=== PATIENT | female | born 1995 | race Caucasian/White ===

== ENCOUNTER → 2018-03-15 | Outpatient (CLI) | payer OTHER ==
[2018-03-15 19:12] LABS: FREE THYROXINE INDEX 4.1 % (1.3-4.8); T UPTAKE 27 % (30-39); THYROXINE (T4) 15.3 UG/DL (4.5-12.0)
[2018-03-15 19:21] LABS: BASO % 0.4 % (0.0-1.0); EOS # 0.1 10^3/uL (0.0-0.50); EOS % 0.7 % (0.0-3.0); HEMATOCRIT 39.2 % (36.0-47.0); HEMOGLOBIN 13.5 g/dl (12.0-15.5); IMMATURE GRANULOCYTE % 0.4 % (0-3.0); LYMPH # 2.3 10^3/uL (1.5-6.5); LYMPH % 22.8 % (24.0-44.0); MEAN CORPUSCULAR HEMOGLOBIN 31.8 pg (27.0-33.0); MEAN CORPUSCULAR HGB CONC 34.4 g/dl (32.0-36.5); MEAN CORPUSCULAR VOLUME 92.5 fl (80.0-96.0); MONO # 0.6 10^3/uL (0.0-0.8); MONO % 6.1 % (0.0-5.0); NEUTROPHILS # 7.1 10^3/uL (1.8-7.7); NEUTROPHILS % 69.6 % (36.0-66.0); PLATELET COUNT, AUTOMATED 257 10^3/uL (150-450); RED BLOOD COUNT 4.24 10^6/uL (4.00-5.40); RED CELL DISTRIBUTION WIDTH 11.9 % (11.5-14.5); WHITE BLOOD COUNT 10.2 10^3/uL (4.0-10.0)
[2018-03-15 22:01] LABS: CHLAMYDIA DNA AMPLIFICATION NEGATIVE (NEGATIVE); GC DNA AMPLIFICATION NEGATIVE (NEGATIVE)
[2018-03-18 10:44] LABS: RUBELLA IgG QUALITATIVE IMMUNE (IMMUNE)
[2018-03-18 10:48] LABS: HBsAg Prenatal NEGATIVE (NEGATIVE)
[2018-03-18 11:13] LABS: HEPATITIS C VIRUS ABY INDEX 0.1 INDEX (<0.8)
[2018-03-18 11:13] LABS: HIV 1&2 SCREEN CENTAUR NEGATIVE (NEGATIVE)
== END ==
LOC: M SMT 15:45
DX: Z36.89 Encounter for other specified antenatal screening (principal); Z3A.08 8 weeks gestation of pregnancy
CPT/HCPCS: 84443

== ENCOUNTER 2018-04-25 10:43 | Emergency (ER) | payer OTHER ==
[2018-04-25 12:26] LABS: BASO % 0.2 % (0.0-1.0); EOS # 0.1 10^3/uL (0.0-0.50); EOS % 0.9 % (0.0-3.0); HEMATOCRIT 40.4 % (36.0-47.0); HEMOGLOBIN 14.1 g/dl (12.0-15.5); IMMATURE GRANULOCYTE % 0.4 % (0-3.0); LYMPH # 1.8 10^3/uL (1.5-6.5); LYMPH % 20.3 % (24.0-44.0); MEAN CORPUSCULAR HEMOGLOBIN 32.2 pg (27.0-33.0); MEAN CORPUSCULAR HGB CONC 34.9 g/dl (32.0-36.5); MEAN CORPUSCULAR VOLUME 92.2 fl (80.0-96.0); MONO # 0.5 10^3/uL (0.0-0.8); MONO % 5.1 % (0.0-5.0); NEUTROPHILS # 6.6 10^3/uL (1.8-7.7); NEUTROPHILS % 73.1 % (36.0-66.0); PLATELET COUNT, AUTOMATED 221 10^3/uL (150-450); RED BLOOD COUNT 4.38 10^6/uL (4.00-5.40); RED CELL DISTRIBUTION WIDTH 12.2 % (11.5-14.5)
[2018-04-25 12:40] LABS: APPEARANCE, URINE HAZY (CLEAR); BACTERIA, URINE AUTO NEGATIVE (NEGATIVE); BILIRUBIN, URINE AUTO NEGATIVE (NEGATIVE); BLOOD, URINE BLOOD NEGATIVE (NEGATIVE); COLOR, URINE YELLOW (YELLOW); GLUCOSE, URINE (UA) AUTO NEGATIVE (NEGATIVE); KETONE, URINE AUTO NEGATIVE (NEGATIVE); LEUKOCYTE ESTERASE, URINE AUTO NEGATIVE (NEGATIVE); MUCUS, URINE SMALL (NEGATIVE); NITRITE, URINE AUTO NEGATIVE (NEGATIVE); PROTEIN, URINE AUTO NEGATIVE (NEGATIVE); RBC, URINE AUTO 0 /HPF (0-3); SPECIFIC GRAVITY URINE AUTO 1.023 (1.002-1.035); SQUAMOUS EPITHELIAL CELL UR AU 4 /HPF (0-6); UROBILINOGEN, URINE AUTO 0.2 mg/dL (0.0-2.0); WBC, URINE AUTO 1 /HPF (0-3)
[2018-04-25 12:43] LABS: ALBUMIN 3.8 GM/DL (3.2-5.2); ALKALINE PHOSPHATASE 59 U/L (45-117); ALT/SGPT 15 U/L (12-78); ANION GAP 9 MEQ/L (8-16); AST/SGOT 12 U/L (7-37); BILIRUBIN,TOTAL 0.4 MG/DL (0.2-1.0); BLOOD UREA NITROGEN 6 MG/DL (7-18); CALCIUM LEVEL 9.1 MG/DL (8.5-10.1); CARBON DIOXIDE LEVEL 22 MEQ/L (21-32); CHLORIDE LEVEL 107 MEQ/L (98-107); CREATININE FOR GFR 0.54 MG/DL (0.55-1.30); GLOMERULAR FILTRATION RATE > 60.0 (>60); GLUCOSE, FASTING 79 MG/DL (70-100); POTASSIUM SERUM 4.1 MEQ/L (3.5-5.1); SODIUM LEVEL 138 MEQ/L (136-145)
== END 2018-04-25 13:25 | disposition home or self-care (01) ==
LOC: M ED 10:43
DX: O99.89 Other specified diseases and conditions complicating pregnancy, childbirth and the puerperium (principal); N83.11 Corpus luteum cyst of right ovary; Z3A.15 15 weeks gestation of pregnancy
CPT/HCPCS: 76811

== ENCOUNTER → 2018-05-15 | Outpatient (CLI) | payer OTHER ==
[2018-05-15 14:45] LABS: FREE T4 0.93 NG/DL (0.76-1.46)
== END ==
LOC: M SMT 10:46
DX: Z34.82 Encounter for supervision of other normal pregnancy, second trimester (principal); Z36.89 Encounter for other specified antenatal screening
CPT/HCPCS: 84443

== ENCOUNTER → 2018-05-24 | Outpatient (CLI) | payer OTHER | LOC: M RAD 17:28 | DX: Z36.89 Encounter for other specified antenatal screening (principal); Z3A.19 19 weeks gestation of pregnancy | CPT/HCPCS: 76816 ==

== ENCOUNTER → 2018-06-19 | Outpatient (CLI) | payer OTHER | LOC: M RAD 16:36 | DX: O44.42 Low lying placenta NOS or without hemorrhage, second trimester (principal); Z36.89 Encounter for other specified antenatal screening; Z3A.23 23 weeks gestation of pregnancy | CPT/HCPCS: 76816 ==

== ENCOUNTER → 2018-07-22 | Outpatient (CLI) | payer OTHER | LOC: M RAD 11:47 | DX: Z36.89 Encounter for other specified antenatal screening (principal); Z3A.28 28 weeks gestation of pregnancy | CPT/HCPCS: 76816 ==

== ENCOUNTER → 2018-07-24 | Outpatient (CLI) | payer OTHER ==
[2018-07-24 18:27] LABS: GLUCOSE CHALLENGE TEST 1 HOUR 122 MG/DL (LESS THAN 140)
[2018-07-24 18:36] LABS: HEMATOCRIT 36.4 % (36.0-47.0); MEAN CORPUSCULAR HEMOGLOBIN 31.7 pg (27.0-33.0); PLATELET COUNT, AUTOMATED 201 10^3/uL (150-450); RED BLOOD COUNT 3.79 10^6/uL (4.00-5.40); RED CELL DISTRIBUTION WIDTH 11.9 % (11.5-14.5); WHITE BLOOD COUNT 11.2 10^3/uL (4.0-10.0)
[2018-07-25 08:45] LABS: TYPE AND SCREEN 1 1
== END ==
LOC: M SMT 14:28
DX: Z36.89 Encounter for other specified antenatal screening (principal)
CPT/HCPCS: 82950

== ENCOUNTER 2018-08-31 10:00 | Outpatient (CLI) | payer OTHER ==
[~2018-08-31] VITALS: Ht 167.6 cm; Wt 102.6 kg
[2018-08-31] MEDS ORDERED: PRENTAB9 PO (10:10)
[2018-08-31 10:17] VITALS: BP 127/76
== END 2018-08-31 11:20 | disposition home or self-care (01) ==
LOC: M LDO 10:00
PROVIDERS: ATTEND Specialist
DX: O36.8130 Decreased fetal movements, third trimester, not applicable or unspecified (principal); Z3A.33 33 weeks gestation of pregnancy
CPT/HCPCS: 59025; G0378; G0463

== ENCOUNTER → 2018-09-20 | Outpatient (REF) | payer OTHER ==
[~2018-09-20] MED LIST: PRENTAB9 PO
== END ==
LOC: M LAB REF 17:09
PROVIDERS: ATTEND Advanced Practice Midwife
DX: Z34.83 Encounter for supervision of other normal pregnancy, third trimester (principal)

== ENCOUNTER 2018-10-06 19:44 | Outpatient (CLI) | payer OTHER ==
[~2018-10-06] VITALS: Ht 167.6 cm; Wt 108.2 kg
[2018-10-06 19:58] VITALS: BP 122/84
== END 2018-10-06 20:40 | disposition home or self-care (01) ==
LOC: M LDO 19:44
PROVIDERS: ATTEND Specialist
DX: O26.893 Other specified pregnancy related conditions, third trimester (principal); N89.8 Other specified noninflammatory disorders of vagina; O47.03 False labor before 37 completed weeks of gestation, third trimester; Z3A.29 29 weeks gestation of pregnancy
CPT/HCPCS: 59025; G0378; G0463

== ENCOUNTER 2018-10-10 00:42 | Inpatient (IN) | payer OTHER ==
[2018-10-10] VITALS (32 sets, daily range): BP systolic 109–142; BP diastolic 65–88
[~2018-10-10] VITALS: Ht 167.6 cm; Wt 108.5 kg
[2018-10-10] MEDS ORDERED: BUTORPHANOL 2 MG/ML INJ (J0595) IV ONE (04:15)
[2018-10-10] MEDS ORDERED: PROMETHAZINE INJ 25 MG/ML VIAL (J2550) IV ONE (04:15)
--- NOTE | 2018-10-10 06:52 | IPN ---
DATE: 10/10/2018 Geraldine is a 23-year-old, 1, para 0, at 39-1/7 weeks gestation with an expected date of confinement (EDC) of 10/16/2018 based on last menstrual period and confirmed by a first trimester ultrasound. She presents to labor and delivery today with report of onset of continued contractions over the last 2 days. She feels like they have become much more uncomfortable. She does report some pink spotting with wipe on the tissue paper following intercourse at 2300 tonight. She denies leakage of fluid. Does report the fetus has been active. Her care was initiated at [facility] in the first trimester. Her course has been uncomplicated. OBSTETRICAL HISTORY: Primigravid. OBSTETRIC LABS: A negative. Antibody screen negative. Rubella immune. VDRL nonreactive. Urine culture no growth. Hepatitis B surface antigen negative. HIV negative. Hepatitis C antibody nonreactive. Gonorrhea and chlamydia negative. She did decline genetic serum screening labs. Gestational diabetic screening normal at 122. Her GBS is positive. PAST MEDICAL HISTORY: She reports that there was some thought of having thyroid disease. She has had her thyroid function tests tested throughout her and they have remained normal. She has never had a formal diagnosis of hypo or hyperthyroid. Childhood varicella. PAST SURGICAL HISTORY: Lymph node removal from the neck and two surgeries and one biopsy of the left nipple due to a duct problem, papilloma. FAMILY HISTORY: Cancer of breast, hypertension, lupus. SOCIAL HISTORY: The patient is . Her is at bedside. She is a nonsmoker. Denies alcohol and drug use. No history of sexually transmitted infections. Denies history of abuse - physical, sexual and emotional. ALLERGIES: No known drug allergies. CURRENT MEDICATIONS: vitamins. OBJECTIVE: Upon arrival, her temperature was 97.8, pulse 94, blood pressure (BP) 123/76. She did not appear uncomfortable. heart rate of 120 with moderate variability, positive accelerations and no decelerations. Contractions approximately every 7-8 minutes. They do palpate mild. Sterile vaginal exam upon arrival 1.5 cm dilated, 80% effaced, -2 station. Following 2 hours of monitoring, repeat cervical exam shows her cervix to be 2 cm dilated, 80% effaced, -2 station. There is show with her exam. ASSESSMENT: 1. Intrauterine at 39-1/7 weeks. 2. heart rate category one. 3. Latent labor. PLAN: I offered three options to Geraldine. I reviewed the options of going home for continued rest, staying here for therapeutic rest, and offering induction of labor with IV Pitocin. The patient requested to stay for therapeutic rest, so IV Stadol and Phenergan have been ordered, and we will continue to observe her.
[2018-10-10] MEDS ORDERED: PENICILLIN G POTASSIUM IV 5 MU in D5W MINI-BAG PLUS 100 ML IV STA (08:25)
[2018-10-10] MEDS ORDERED: LR 1,000 ML IV SCH (08:25)
[2018-10-10] MEDS ORDERED: OXYTOCIN DRIP 30 UNITS in APPROPRIATE DILUENT 1 EA IV SCH ×2 (08:30→13:00)
--- NOTE | 2018-10-10 08:46 | HPE ---
DATE OF ADMISSION: 10/10/2018 Geraldine is a 23-year-old 1, para 0, at 39-1/7 weeks gestation with an estimated date of confinement (EDC) of 10/16/2018 based on last period and confirmed by first trimester ultrasound. She is admitted to labor and delivery today following observation for prodromal latent labor. She received therapeutic rest and received no relief. Contractions are still uncomfortable per her report, approximately every 8 minutes. She does desire induction of labor at this time. She denies vaginal bleeding and leakage of fluid. The fetus has been active. Her care was initiated at [facility] in the first trimester. Her course complicated by a question of hypothyroid. Her labs returned normal results throughout her course. No need for any medications. No diagnosis formally of any thyroid disorder. OBSTETRICAL HISTORY: Primigravida. OBSTETRIC LABS: A negative. Antibody screen negative. Rubella immune. VDRL nonreactive. Urine culture no growth. Hepatitis B surface antigen negative. HIV negative. Hepatitis C antibody nonreactive. Gonorrhea and chlamydia negative. She declined genetic serum screening labs. Gestational diabetic screening normal at 122 and her GBS is positive. PAST MEDICAL HISTORY: Childhood varicella. SURGERIES: Lymph node removal, breast biopsy of the left breast, papilloma in the nipple. FAMILY HISTORY: Cancer, hypertension, lupus, varicose veins, thyroid disorder. SOCIAL HISTORY: The patient is . Her is at her bedside supportive. She is a nonsmoker. Denies alcohol and drug use. No history of any sexually transmitted infections. Denies history of abuse physical, sexual and emotional. ALLERGIES: NO KNOWN DRUG ALLERGIES. CURRENT MEDICATIONS: - vitamins OBJECTIVE: Vital signs: 97.9, pulse 78, respirations 18, blood pressure (BP) 115/66. She is alert and oriented times three. She appears comfortable. heart rate is 130 with moderate variability, positive accelerations, negative decelerations. Contractions every 8 minutes. Sterile vaginal exam at 0400 hours, 2-3 cm dilated, 80% effaced and -2 station, posterior and soft. ASSESSMENT: Intrauterine at 39-1/7 weeks, heart rate category 1, prodromal latent labor. PLAN: Admit the patient to labor and delivery for induction of labor per consult with Dr. Eagle Carvalho. Start intravenous (IV) Pitocin for labor induction. The patient is going to request an epidural when she is uncomfortable. Routine lab work. Out of bed ad ritesh. Clear liquid diet. I do anticipate an active labor and a spontaneous vaginal delivery.
[2018-10-10] MEDS ORDERED: miSOPROStol 50 MCG 1/2 TAB (S0191) SL SCH (09:00)
[2018-10-10 09:07] LABS: HEMATOCRIT 35.3 % (36.0-47.0); HEMOGLOBIN 11.7 g/dl (12.0-15.5); MEAN CORPUSCULAR HEMOGLOBIN 30.6 pg (27.0-33.0); MEAN CORPUSCULAR HGB CONC 33.1 g/dl (32.0-36.5); MEAN CORPUSCULAR VOLUME 92.4 fl (80.0-96.0); PLATELET COUNT, AUTOMATED 180 10^3/uL (150-450); RED BLOOD COUNT 3.82 10^6/uL (4.00-5.40); WHITE BLOOD COUNT 13.2 10^3/uL (4.0-10.0)
[2018-10-10] MEDS: PENICILLIN G POTASSIUM IV 2.5 MU in APPROPRIATE DILUENT 1 EA IV SCH ×2 (13:10→17:16)
[2018-10-10] MEDS ORDERED: FENTANYL 2MCG/ML ROPIVACAINE 0.2% IN 0.9% NACL 100ML IVBAG As Ordered ONE (14:17)
[2018-10-10] MEDS ORDERED: FENTANYL/ROPIVACAINE/NACL BAG 100 ML EPIDURAL SCH ×2 (15:00→16:00)
[2018-10-10] MEDS ORDERED: EPIDURAL/PCA KEYS XX PRN ×2 (15:00→16:00)
[2018-10-10] MEDS ORDERED: ePHEDrine SULFATE 25 MG/5 ML(5MG/ML) SYRINGE IV PRN (16:00)
[2018-10-10] MEDS ORDERED: diphenhydrAMINE INJ 50MG/ML VIAL (J1200) IV PRN (16:00)
[2018-10-10] MEDS ORDERED: LACTATED RINGER'S 1000 ML IV PRN (16:00)
[2018-10-10] MEDS ORDERED: NALOXONE INJ 0.4 MG/1 ML VIAL (J2310) IV PRN (16:00)
[2018-10-10] MEDS ORDERED: ONDANSETRON 4MG/2ML VIAL (J2405) IV PRN ×2 (16:00→19:00)
[2018-10-10] MEDS ORDERED: REFRIGERATOR IV KEYS XX PRN (16:00)
[2018-10-10] MEDS ORDERED: EPIDURAL COMMENT XX SCH (16:00)
[2018-10-10] MEDS ORDERED: METHYLERGONOVINE MALEATE 0.2 MG TAB PO PRN (19:00)
[2018-10-10] MEDS ORDERED: MEASLES,MUMPS,RUBELLA VACCINE INJ (MMR-II) (90707) SC SCH (19:00)
[2018-10-10] MEDS ORDERED: DIBUCAINE 1% OINTMENT 30GM TOP PRN (19:00)
[2018-10-10] MEDS ORDERED: ACETAMINOPHEN 500 MG TAB PO PRN (19:00)
[2018-10-10] MEDS ORDERED: DOCUSATE SODIUM 100 MG CAP PO PRN (19:00)
[2018-10-10] MEDS ORDERED: RHOGAM 300 MCG (1500 IU) INJ (J2790) IM SCH (19:00)
[2018-10-10] MEDS ORDERED: OXYTOCIN DRIP 30 UNITS in APPROPRIATE DILUENT 1 EA IV ONE (19:00)
--- NOTE | 2018-10-10 20:34 | DN ---
DATE OF DELIVERY: 10/10/2018 PREDELIVERY DIAGNOSIS: 39+ weeks, labor. POSTDELIVERY DIAGNOSIS: Delivered. PROCEDURE: Spontaneous vaginal delivery. AGRICULTURAL ECONOMIST: Dr. Eagle Carvalho ANESTHESIA: Epidural. ESTIMATED BLOOD LOSS: 300 mL. FINDINGS: 7 pound 5 ounce male infant, scores 8 and 9. DELIVERY SUMMARY: After a 50 minute second stage, patient had spontaneous delivery of a 7 pound 5 ounce male infant, scores 8 and 9 under epidural anesthesia. There was no nuchal cord. The shoulders delivered with ease. The was handed to the mother and cried immediately. The cord was doubly clamped and cut. The placenta delivered spontaneously and appeared to be intact. The patient received IV Pitocin immediately after delivery of the placenta. A first-degree perineal laceration was repaired with 2-0 chromic in the usual fashion. Sponge and needle counts were correct.
[2018-10-11] MEDS: IBUPROFEN 800 MG TAB PO PRN ×2 (02:57→15:19)
[2018-10-11 05:37] VITALS: BP 102/58
[2018-10-11] MEDS: PRENATAL VITAMINS CHEWABLE TABLET PO SCH (08:40)
[2018-10-11 18:00] VITALS: BP 132/75
[2018-10-12 06:40] VITALS: BP 127/77
[2018-10-12] MEDS ORDERED: MAPA500T2 PO (07:55)
[2018-10-12] MEDS ORDERED: IBUP-1114 PO (07:55)
[2018-10-12] MEDS: PRENATAL VITAMINS CHEWABLE TABLET PO SCH (08:01)
[2018-10-12 09:30] VITALS: BP 123/80
== END 2018-10-12 14:10 | disposition home or self-care (01) | DRG 807 ==
LOC: M LDO 00:42 → M LDI 08:24 → M OBS 20:54
PROVIDERS: ADMIT Advanced Practice Midwife; ATTEND Advanced Practice Midwife
PROC: 10E0XZZ Delivery of Products of Conception, External Approach (ICD-10-PCS; principal; 2018-10-10)
PROC: 0HQ9XZZ Repair Perineum Skin, External Approach (ICD-10-PCS; 2018-10-10)
DX: O70.0 First degree perineal laceration during delivery (principal); Z37.0 Single live birth; Z3A.39 39 weeks gestation of pregnancy

== ENCOUNTER → 2020-04-29 | Outpatient (REF) | payer OTHER ==
[~2020-04-29] MED LIST changes: +IBUP-1114 PO; +MAPA500T2 PO
== END ==
LOC: M SFHCWAGY 16:51
PROVIDERS: ATTEND Advanced Practice Midwife
DX: Z12.4 Encounter for screening for malignant neoplasm of cervix (principal)

== ENCOUNTER → 2020-04-29 | Outpatient (CLI) | payer OTHER ==
[2020-04-29 15:40] LABS: HEMOGLOBIN 13.1 g/dl (12.0-15.5); MEAN CORPUSCULAR HEMOGLOBIN 30.9 pg (27.0-33.0); MEAN CORPUSCULAR HGB CONC 32.8 g/dl (32.0-36.5); MEAN CORPUSCULAR VOLUME 94.3 fl (80.0-96.0); PLATELET COUNT, AUTOMATED 259 10^3/uL (150-450); RED BLOOD COUNT 4.24 10^6/uL (4.00-5.40); WHITE BLOOD COUNT 7.3 10^3/uL (4.0-10.0)
[2020-04-29 16:09] LABS: ALBUMIN 4.2 GM/DL (3.2-5.2); ALT/SGPT 18 U/L (12-78); BILIRUBIN,TOTAL 0.4 MG/DL (0.2-1.0); BLOOD UREA NITROGEN 11 MG/DL (7-18); CALCIUM LEVEL 9.7 MG/DL (8.5-10.1); CARBON DIOXIDE LEVEL 27 MEQ/L (21-32); CHLORIDE LEVEL 104 MEQ/L (98-107); CHOLESTEROL LEVEL 148 MG/DL (<200); CHOLESTEROL RISK RATIO 2.846 (<5); CREATININE FOR GFR 0.72 MG/DL (0.55-1.30); FREE T4 1.01 NG/DL (0.76-1.46); GLOMERULAR FILTRATION RATE > 60.0 (>60); GLUCOSE, FASTING 86 MG/DL (70-100); HDL CHOLESTEROL 52 MG/DL (>40); LDL CHOLESTEROL 76 MG/DL (<100); NON-HDL-C 96 MG/DL; POTASSIUM SERUM 4.1 MEQ/L (3.5-5.1); SODIUM LEVEL 138 MEQ/L (136-145); TOTAL PROTEIN 7.8 GM/DL (6.4-8.2); TRIGLYCERIDES LEVEL 101 MG/DL (<150)
[2020-04-29 16:10] LABS: TOTAL 25(OH) VITAMIN D 23.6 NG/ML (30.0-100.0)
[2020-04-29 17:21] LABS: HEMOGLOBIN A1c 5.2 %
== END ==
LOC: M PLALAB 12:28
PROVIDERS: ATTEND Advanced Practice Midwife
DX: Z12.4 Encounter for screening for malignant neoplasm of cervix (principal); E04.9 Nontoxic goiter, unspecified
CPT/HCPCS: 36415; 80053; 80061; 82306; 83036; 84439; 84443; 85027; G0123

== ENCOUNTER → 2020-06-14 | Outpatient (REF) | payer OTHER ==
[2020-06-14 17:09] LABS: HEMATOCRIT 40.7 % (36.0-47.0); MEAN CORPUSCULAR HEMOGLOBIN 30.4 pg (27.0-33.0); MEAN CORPUSCULAR HGB CONC 31.9 g/dl (32.0-36.5); MEAN CORPUSCULAR VOLUME 95.1 fl (80.0-96.0); PLATELET COUNT, AUTOMATED 262 10^3/uL (150-450); RED BLOOD COUNT 4.28 10^6/uL (4.00-5.40); WHITE BLOOD COUNT 9.2 10^3/uL (4.0-10.0)
[2020-06-14 20:02] LABS: HEPATITIS C VIRUS ABY INDEX 0.1 INDEX (<0.8); HIV 1&2 SCREEN CENTAUR NEGATIVE (NEGATIVE)
== END ==
LOC: M PLALAB 12:10
PROVIDERS: ATTEND Advanced Practice Midwife
DX: Z34.91 Encounter for supervision of normal pregnancy, unspecified, first trimester (principal); Z3A.00 Weeks of gestation of pregnancy not specified

== ENCOUNTER → 2020-07-15 | Outpatient (REF) | payer OTHER | LOC: M SFHCWAGY 10:07 | PROVIDERS: ATTEND Advanced Practice Midwife | DX: Z34.81 Encounter for supervision of other normal pregnancy, first trimester (principal) ==

== ENCOUNTER → 2020-08-04 | Outpatient (CLI) | payer OTHER ==
--- NOTE | 2020-08-04 17:05 | REP ---
INDICATION: E04.9 GOITER COMPARISON: None. TECHNIQUE: Arechiga scale and color evaluation of the thyroid gland using the linear high frequency transducer. FINDINGS: The thyroid gland is normal in contour, shape, size, and parenchymal echogenicity. Isthmus measures 2.3 mm in width. Right lobe measures 4.8 x 1.5 x 1.4 cm and includes a 6 x 4 x 5 mm isoechoic posteroinferior nodule which is nonspecific. Left lobe measures 4.7 x 1.6 x 1.2 cm and includes 4 x 3 x 5 mm simple lower pole cyst. IMPRESSION: Findings as described above. Right thyroid nodular density differential includes parathyroid gland. Left thyroid lesion compatible with small benign cyst. <Electronically signed by Shaun Morse > 08/04/20 [id number]
== END ==
LOC: M WHC 15:03
PROVIDERS: ATTEND Advanced Practice Midwife
DX: E04.9 Nontoxic goiter, unspecified (principal)

== ENCOUNTER → 2020-08-04 | Outpatient (REF) | payer OTHER ==
[2020-08-04 14:33] LABS: FREE T4 0.98 NG/DL (0.76-1.46); THYROID STIMULATING HORMONE 1.88 uIU/ML (0.358-3.740)
== END ==
LOC: M PLALAB 09:52
PROVIDERS: ATTEND Advanced Practice Midwife
DX: E04.9 Nontoxic goiter, unspecified (principal)

== ENCOUNTER → 2020-08-23 | Outpatient (REF) | payer OTHER ==
[2020-08-23 15:14] LABS: FREE THYROXINE INDEX 3.4 % (1.3-4.8); THYROID STIMULATING HORMONE 2.14 uIU/ML (0.358-3.740); THYROXINE (T4) 15.4 UG/DL (4.5-12.0)
== END ==
LOC: M PLALAB 10:20
PROVIDERS: ATTEND Advanced Practice Midwife
DX: E04.9 Nontoxic goiter, unspecified (principal)

== ENCOUNTER → 2020-09-02 | Outpatient (CLI) | payer OTHER ==
--- NOTE | 2020-09-03 08:52 | REP ---
INDICATION: ANATOMY COMPARISON: None. TECHNIQUE: Transabdominal obstetrical ultrasound with color Doppler evaluation. FINDINGS: Examination demonstrates a single live intrauterine in cephalic presentation. motion is identified by technologist. Placenta is noted anterior and grade 1 without evidence for placenta previa or abruption. Amniotic fluid volume is normal. Cervix measures 4.2 cm in length and appears closed.. Gestational age by current measurements 20 weeks 0 days with YASMINE 01/20/2021. FHR equals 133 beats per minute. BPD: 4.5 cm 19 weeks 3 days HC: 17.1 cm 19 weeks 5 days AC: 15.0 cm 20 weeks 2 days FL: 3.1 cm 19 weeks 5 days HL: 3.3 cm 21 weeks 0 days HC/AC: 1.14 Estimated weight 322 grams (67thpercentile). Anatomical assessment demonstrates normal structures including cranium, choroid plexus, cavum, cerebellum/posterior fossa, facial features, lungs, four-chamber heart/ventricular outflow tracts, diaphragm, stomach, cord insertion/three-vessel cord, kidneys/bladder, spine, and extremities. Incidental echogenic focus within the cardiac ventricle likely prominent chordae tendineae. IMPRESSION: Single live intrauterine in cephalic presentation demonstrating appropriate estimated weight. Anatomical assessment essentially complete and relatively normal as described above. <Electronically signed by Shaun Morse > 09/03/20 [id number]
== END ==
LOC: M WHC 08:51
PROVIDERS: ATTEND Advanced Practice Midwife
DX: Z36.9 Encounter for antenatal screening, unspecified (principal); Z3A.20 20 weeks gestation of pregnancy

== ENCOUNTER → 2020-09-20 | Outpatient (REF) | payer OTHER | LOC: M PLALAB 15:28 | PROVIDERS: ATTEND Obstetrics & Gynecology | DX: Z3A.22 22 weeks gestation of pregnancy (principal) ==

== ENCOUNTER → 2020-10-04 | Outpatient (CLI) | payer OTHER ==
[2020-10-04 12:03] LABS: FREE T4 0.81 NG/DL (0.76-1.46); THYROID PEROXIDASE ANTIBODY < 28.0 U/ML (<60.0)
[2020-10-04 12:04] LABS: THYROGLOBULIN ANTIBODY < 15.0 U/ML (<60.0)
== END ==
LOC: M PLALAB 08:49
PROVIDERS: ATTEND Nurse Practitioner Family
DX: R94.6 Abnormal results of thyroid function studies (principal)

== ENCOUNTER → 2020-10-18 | Outpatient (REF) | payer OTHER | LOC: M PLALAB 10:23 | PROVIDERS: ATTEND Obstetrics & Gynecology | DX: O99.282 Endocrine, nutritional and metabolic diseases complicating pregnancy, second trimester (principal); Z53.9 Procedure and treatment not carried out, unspecified reason ==

== ENCOUNTER → 2020-10-20 | Outpatient (CLI) | payer SELFPAY | LOC: M LABSMTC 10:29 | PROVIDERS: ATTEND Pediatrics | DX: Z11.52 Encounter for screening for COVID-19 (principal) ==

== ENCOUNTER → 2020-10-29 | Outpatient (REF) | payer OTHER ==
[2020-10-29 14:03] LABS: HEMOGLOBIN 12.3 g/dl (12.0-15.5); MEAN CORPUSCULAR HEMOGLOBIN 31.3 pg (27.0-33.0); MEAN CORPUSCULAR HGB CONC 33.2 g/dl (32.0-36.5); MEAN CORPUSCULAR VOLUME 94.1 fl (80.0-96.0); PLATELET COUNT, AUTOMATED 183 10^3/uL (150-450); RED BLOOD COUNT 3.93 10^6/uL (4.00-5.40); WHITE BLOOD COUNT 9.1 10^3/uL (4.0-10.0)
[2020-10-29 14:41] LABS: FREE T4 0.87 NG/DL (0.76-1.46); THYROID STIMULATING HORMONE 1.57 uIU/ML (0.358-3.740)
== END ==
LOC: M PLALAB 09:34
PROVIDERS: ATTEND Obstetrics & Gynecology
DX: O99.282 Endocrine, nutritional and metabolic diseases complicating pregnancy, second trimester (principal); Z3A.22 22 weeks gestation of pregnancy
CPT/HCPCS: 36415; 82950; 84439; 84443; 85027; 86850; 86900; 86901; J2790

== ENCOUNTER → 2020-12-03 | Outpatient (REF) | payer OTHER ==
[2020-12-03 15:48] LABS: APPEARANCE, URINE HAZY (CLEAR); BACTERIA, URINE AUTO NEGATIVE (NEGATIVE); BILIRUBIN, URINE AUTO NEGATIVE (NEGATIVE); BLOOD, URINE BLOOD NEGATIVE (NEGATIVE); CALCIUM OXALATE CRYSTALS SMALL; COLOR, URINE YELLOW (YELLOW); GLUCOSE, URINE (UA) AUTO NEGATIVE (NEGATIVE); KETONE, URINE AUTO TRACE mg/dL (NEGATIVE); LEUKOCYTE ESTERASE, URINE AUTO 1+ (NEGATIVE); MUCUS, URINE SMALL (NEGATIVE); NITRITE, URINE AUTO NEGATIVE (NEGATIVE); PROTEIN, URINE AUTO 1+ mg/dL (NEGATIVE); RBC, URINE AUTO 1 /HPF (0-3); SPECIFIC GRAVITY URINE AUTO 1.026 (1.002-1.035); SQUAMOUS EPITHELIAL CELL UR AU 3 /HPF (0-6); UROBILINOGEN, URINE AUTO 0.2 mg/dL (0.0-2.0); WBC, URINE AUTO 9 /HPF (0-3)
[2020-12-03 16:03] LABS: TOTAL PROTEIN,RANDOM URINE 20.7 MG/DL (0.0-12.0)
== END ==
LOC: M SFHCPLAZ 15:12
PROVIDERS: ATTEND Advanced Practice Midwife
DX: Z36.89 Encounter for other specified antenatal screening (principal); Z3A.32 32 weeks gestation of pregnancy

== ENCOUNTER → 2020-12-13 | Outpatient (REF) | payer OTHER | LOC: M SFHCWAGY 13:06 | PROVIDERS: ATTEND Advanced Practice Midwife | DX: Z33.1 Pregnant state, incidental (principal) ==

== ENCOUNTER → 2020-12-16 | Outpatient (REF) | payer OTHER ==
[2020-12-16 18:41] LABS: FREE T4 0.82 NG/DL (0.76-1.46); THYROID STIMULATING HORMONE 2.1 uIU/ML (0.358-3.740)
== END ==
LOC: M PLALAB 15:26
PROVIDERS: ATTEND Advanced Practice Midwife
DX: O99.283 Endocrine, nutritional and metabolic diseases complicating pregnancy, third trimester (principal)
CPT/HCPCS: 36415; 84439; 84443; G0463

== ENCOUNTER 2020-12-25 14:46 | Outpatient (CLI) | payer OTHER ==
[~2020-12-25] VITALS: Ht 167.6 cm; Wt 108.3 kg
[2020-12-25 14:59] VITALS: BP 115/76
--- NOTE | 2020-12-25 16:30 | IPNPDOC ---
Text Note Date of Service The patient was seen on 12/25/20. NOTE Triage Note Geraldine is a 25yo with SIUP at 35w6d presenting to L&D triage for CC of DFM. She states that this morning she noticed that baby hadn't really moved. She ate breakfast and waited around, felt a few movements, then had lunch later and still altogether including morning maybe felt 8 movements which is very different than normal. She states she may be "freaking herself out" and worrying needlessly, but given that she did not get her kick counts, I advised her to come in for eval. No regular/painful ctx, no LOF, no VB. No other complaints. Vitals wnl, afebrile Gen: WDWN, resting comfortably in bed Abdomen: soft, gravid, NTTP TAUS: SIUP with cephalic presentation, +FCA, +FM, MVP 4cm, anterior placenta Reactive NST with mod ivonne, +accels, -decels, no ctx pattern Assessment: Geraldine is a 25yo with SIUP at 35w6d with reassuring assessment. Reactive NST, MVP 4cm. Patient endorsed more movements in triage. Vitals wnl, benign exam. Plan: -discharge to home -continue to hydrate well -keep next OB appt on -return precautions discussed Leann Valladares MD VS,Kesha, I+O VSKesha, I+O Vital Signs Date Time Temp Pulse Resp B/P (MAP) Pulse Ox O2 Delivery O2 Flow Rate FiO2 12/25/20 14:59 94 115/76 (89) 12/25/20 14:56 97.8 18 Leann Valladares MD December 25, 2020 16:30
== END 2020-12-25 16:00 | disposition home or self-care (01) ==
LOC: M LDO 14:46
PROVIDERS: ATTEND Obstetrics & Gynecology
DX: O36.8130 Decreased fetal movements, third trimester, not applicable or unspecified (principal); Z3A.35 35 weeks gestation of pregnancy
CPT/HCPCS: 59025; 76815; G0378; G0463

== ENCOUNTER → 2020-12-30 | Outpatient (REF) | payer OTHER | LOC: M SFHCWAGY 12:43 | PROVIDERS: ATTEND Advanced Practice Midwife | DX: Z36.89 Encounter for other specified antenatal screening (principal); Z3A.36 36 weeks gestation of pregnancy | CPT/HCPCS: 87081; G0463 ==

== ENCOUNTER → 2021-01-16 | Outpatient (CLI) | payer OTHER | LOC: M LABSMTC 08:33 | PROVIDERS: ATTEND Specialist | DX: Z01.812 Encounter for preprocedural laboratory examination (principal); Z20.822 Contact with and (suspected) exposure to COVID-19 ==

== ENCOUNTER 2021-01-20 16:32 | Outpatient (CLI) | payer OTHER ==
[2021-01-20] VITALS (9 sets, daily range): BP systolic 108–132; BP diastolic 67–83
[~2021-01-20] VITALS: Ht 170.2 cm; Wt 109.1 kg
[2021-01-20 18:00] LABS: HEMATOCRIT 34.6 % (36.0-47.0); HEMOGLOBIN 11.3 g/dl (12.0-15.5); MEAN CORPUSCULAR HEMOGLOBIN 29.6 pg (27.0-33.0); MEAN CORPUSCULAR HGB CONC 32.7 g/dl (32.0-36.5); MEAN CORPUSCULAR VOLUME 90.6 fl (80.0-96.0); PLATELET COUNT, AUTOMATED 181 10^3/uL (150-450); RED BLOOD COUNT 3.82 10^6/uL (4.00-5.40)
[2021-01-20 18:11] LABS: CREATININE,RANDOM URINE 14.4 MG/DL; TOTAL PROTEIN,RANDOM URINE < 5.0 MG/DL (0.0-12.0)
[2021-01-20 18:13] LABS: ALT/SGPT 11 U/L (12-78); BILIRUBIN,TOTAL 0.3 MG/DL (0.2-1.0); GLOMERULAR FILTRATION RATE > 60.0 (>60); LDH LACTATE DEHYDROGENASE 175 U/L (84-246); URIC ACID 4.8 MG/DL (2.6-6.0)
--- NOTE | 2021-01-20 20:33 | IPNPDOC ---
Text Note Date of Service The patient was seen on 01/20/21. NOTE Labor and Delivery Triage Note: S: 25-year-old 2 para 1 presents at 39 weeks 4 days estimated gestational age here for evaluation for preeclampsia. She was seen in the office earlier today with elevated blood pressures. She denies any headaches visual changes or abdominal pain. She reports active movement and denies any vaginal bleeding or leakage of fluid or regular pattern of contractions Reports active movement. O: vss, AF no ctx Serial blood pressures within normal limits Cat 1 tracing Gen: well appearing, NAD Abd: gravid, soft, nttp cx: Deferred - labs wnl A/P: 25-year-old 2 para 1 with isolated elevated blood pressures -not gestational hypertensive or preeclamptic reassuring status -home with Labor precautions and FKCs. -Patient said for induction of labor at 40 weeks Rylee Arcos MD VS,Kesha, I+O VSKesha I+O Laboratory Tests 01/20/21 17:31 Vital Signs Date Time Temp Pulse Resp B/P (MAP) Pulse Ox O2 Delivery O2 Flow Rate FiO2 01/20/21 19:05 98.2 93 18 110/67 (81) 98 Room Air RYLEE ARCOS MD. Jan 20, 2021 20:33
== END 2021-01-20 19:55 | disposition home or self-care (01) ==
LOC: M LDO 16:32
PROVIDERS: ATTEND Obstetrics & Gynecology
DX: O26.893 Other specified pregnancy related conditions, third trimester (principal); R03.0 Elevated blood-pressure reading, without diagnosis of hypertension; Z3A.39 39 weeks gestation of pregnancy
CPT/HCPCS: 36415; 59025; 82247; 82565; 82570; 83615; 84156; 84450; 84460; 84550; 85027; 86780; 86850; 86870; 86900; 86901; G0378; G0463

== ENCOUNTER 2021-01-25 06:19 | Inpatient (IN) | payer OTHER ==
[2021-01-25] VITALS (31 sets, daily range): BP systolic 94–151; BP diastolic 53–82
[~2021-01-25] VITALS: Ht 170.2 cm; Wt 107.9 kg
[2021-01-25] MEDS ORDERED: LACTATED RINGER'S 1000 ML IV STA (07:38)
[2021-01-25] MEDS ORDERED: OXYTOCIN DRIP 30 UNITS in IV 1 EA IV PRN (07:40)
[2021-01-25] MEDS ORDERED: CARBOPROST TROMETHAMINE 250 MCG/ML AMP IM PRN (07:40)
[2021-01-25] MEDS ORDERED: TRANEXAMIC ACID INJection 1,000 MG in NS 100 ML IV PRN (07:40)
[2021-01-25] MEDS ORDERED: LIDOCAINE 1% MDV 20ML VIAL INFIL PRN (07:40)
--- NOTE | 2021-01-25 08:00 | HPEPDOC ---
Obstetrical History & Physical General Date of Admission Jan 25, 2021 at 06:19 History of Present Illness 25 yo female at 40 2/7 weeks by 7 week ultrasound (EDC=01/23/2021) presen ts for labor induction. Information Provided By: Patient Age: 25 : 2 Term: 1 Pre-term: 0 Abortions: 0 Livin Care Care: Good Care Dating Final EDC: Jan 23, 2021 Final EDC by: 1st trimester (US) Antepartum Course Diagnos(e)s Hyperthyroid: Seen by Dr. Aguirre Past Medical History Past Obstetrical History : Past Obstetrical History: Multigravida Past Medical History Medical History OB: 2019 39 week med hx: H/o thyroid disesase, seen by Dr. Manuela Aguirre Family History Significant Family History: No pertinent family hx Social History Marital Status: Family situation: Spouse/partner home Psychosocial History: No pertinent psych hx * Smoker: non-smoker Allergies Coded Allergies: No Known Allergies (Unverified , 05/17/18) Physical Examination Physical Examination GENERAL: Alert and oriented times three. BREAST: . ABDOMEN: Gravid and non-tender to touch. FETUS: Is vertex (VTX) by sterile vaginal examination (SVE), fetus is vertex (VTX) by Jorge. HEART RATE: Regular rate and rhythm. LUNGS: Clear to auscultation (CTA). EXTREMITIES: No edema. No clonus. Deep tendon reflexes (DTRs) + . Vital Signs/I&O Vital Signs Date Time Temp Pulse Resp B/P (MAP) Pulse Ox O2 Delivery O2 Flow Rate FiO2 01/25/21 07:11 98.3 93 18 128/74 (92) 98 Room Air Laboratory Data 24H LABS Laboratory Tests 2 01/25/21 06:24: Serology Scanned Report Hepatitis B Testing Pertinent Laboratoy Data Blood Type: A- Group B Streptococcus: Negative Vaginal Examination Dilation: 1cm Effacement: 50% Station: -2 Cervical Consistency: Medium Cervical Position: Posterior Presentation: Cephalic presentation Assessment Variability: Moderate Accelerations: Positive Decelerations: None Tocometer Contractions: No Assessment/Plan Assessment Pt is a 25-year-old (G)2 para (P)1001 at 40+2 weeks by 7-week ultrasound (EDC=01/23/2021) Presents to Labor and Delivery for induction. Plan Admit and orient. Shoe Lacer and consent. Diet: regular. Group B Strep negative Anticipate [normal spontaneous delivery (). C-S as appropriate. MAIA PERSON MD Jan 25, 2021 08:00
[2021-01-25 08:19] LABS: HEMATOCRIT 36.9 % (36.0-47.0); HEMOGLOBIN 11.9 g/dl (12.0-15.5); MEAN CORPUSCULAR HEMOGLOBIN 29.5 pg (27.0-33.0); MEAN CORPUSCULAR HGB CONC 32.2 g/dl (32.0-36.5); MEAN CORPUSCULAR VOLUME 91.3 fl (80.0-96.0); PLATELET COUNT, AUTOMATED 176 10^3/uL (150-450); RED BLOOD COUNT 4.04 10^6/uL (4.00-5.40); WHITE BLOOD COUNT 9.6 10^3/uL (4.0-10.0)
[2021-01-25] MEDS: miSOPROStol 50MCG 1/2 TABLET SL SCH ×3 (08:19→15:50)
[2021-01-25] MEDS ORDERED: LACTATED RINGER'S 1000 ML IV ONE (09:10)
[2021-01-25] MEDS ORDERED: PROMETHAZINE INJ 25 MG/ML VIAL (J2550) IV ONE (18:00)
[2021-01-25] MEDS ORDERED: BUTORPHANOL 2 MG/ML INJ (J0595) IV ONE (18:00)
[2021-01-25] MEDS ORDERED: LR 1,000 ML IV SCH (19:50)
[2021-01-25] MEDS ORDERED: OXYTOCIN DRIP 30 UNITS in IV 1 EA IV SCH (19:50)
[2021-01-25] MEDS ORDERED: FENTANYL 2MCG/ML ROPIVACAINE 0.2% IN 0.9% NACL 100ML IVBAG As Ordered ONE (21:06)
[2021-01-25] MEDS ORDERED: DOCUSATE SODIUM 100MG CAPSULE PO PRN (23:05)
[2021-01-25] MEDS ORDERED: OXYTOCIN DRIP 30 UNITS in IV 1 EA IV ONE (23:05)
[2021-01-25] MEDS ORDERED: ACETAMINOPHEN TAB 650MG DOSE (2X325MG) PO PRN (23:05)
[2021-01-25] MEDS ORDERED: IBUPROFEN 600MG TAB PO PRN (23:05)
[2021-01-25] MEDS ORDERED: MEASLES,MUMPS,RUBELLA VACCINE INJ (MMR-II) (90707) SC SCH (23:05)
[2021-01-25] MEDS ORDERED: RHOGAM 300 MCG (1500 IU) INJ (J2790) IM SCH (23:05)
[2021-01-25] MEDS ORDERED: ACETAMINOPHEN 500 MG TAB PO PRN (23:05)
[2021-01-25] MEDS ORDERED: ONDANSETRON 4MG/2ML VIAL IV PRN ×2 (23:05→23:10)
[2021-01-25] MEDS ORDERED: IBUPROFEN 800 MG TAB PO PRN (23:05)
[2021-01-25] MEDS ORDERED: METHYLERGONOVINE MALEATE 0.2 MG TAB PO PRN (23:05)
[2021-01-25] MEDS ORDERED: DIBUCAINE 1% OINTMENT 30GM TOP PRN (23:05)
[2021-01-25] MEDS ORDERED: EPIDURAL/PCA KEYS XX PRN (23:10)
[2021-01-25] MEDS ORDERED: FENTANYL/ROPIVACAINE/NACL BAG 100 ML EPIDURAL SCH (23:10)
[2021-01-25] MEDS ORDERED: NALOXONE INJ 0.4MG/1ML VIAL (J2310 PER 1MG) IV PRN (23:10)
[2021-01-25] MEDS ORDERED: REFRIGERATOR IV KEYS XX PRN (23:10)
[2021-01-25] MEDS ORDERED: LACTATED RINGER'S 1000 ML IV PRN (23:10)
[2021-01-25] MEDS ORDERED: ePHEDrine SULFATE 25 MG/5 ML(5MG/ML) SYRINGE IV PRN (23:10)
[2021-01-25] MEDS ORDERED: diphenhydrAMINE 50MG/ML VIAL (J1200) IV PRN (23:10)
[2021-01-25] MEDS ORDERED: EPIDURAL COMMENT XX SCH (23:10)
--- NOTE | 2021-01-25 23:12 | DNPDOC ---
[facility] Delivery Note Delivery Note DATE OF DELIVERY: January 25, 2021 PREDELIVERY DIAGNOSIS: 40-0/7 weeks' gestation, labor induction. POST DELIVERY DIAGNOSIS: Delivered. PROCEDURE: Spontaneous vaginal delivery. HOT OILER: Dr. Maia Person MD ANESTHESIA: epidural. ESTIMATED BLOOD LOSS: 300 mL. FINDINGS: 7 pound 2 ounce(3220 g) female infant, Score 7/8, nuchal cord times 1. DELIVERY SUMMARY: Patient is a 25-year-old 2 now para 2 who was admitted to labor and delivery for induction. She received one dose of misoprostol. She had spontaneous rupture of membranes. She required Pitocin Augmentation. She received an epidural. She had a second stage of labor consisting of one push. This resulted in a spontaneous vaginal delivery of a 7 lb. 2 oz. female infant. Nuchal cord x 1 reduced manually. Shoulders delivered with ease. Placenta del ivered spontaneously and appeared intact. MAIA PERSON MD Jan 25, 2021 23:12
[2021-01-26 00:35] VITALS: BP 125/72
[2021-01-26 06:00] VITALS: BP 121/74
[2021-01-26] MEDS: PRENATAL VITAMINS CHEWABLE TABLET PO SCH (07:44)
[2021-01-26 17:45] VITALS: BP 124/75
[2021-01-27 06:18] VITALS: BP 128/76
[2021-01-27] MEDS: PRENATAL VITAMINS CHEWABLE TABLET PO SCH (08:58)
== END 2021-01-27 14:00 | disposition home or self-care (01) | DRG 807 ==
LOC: M LDI 06:19 → M OBS 01-26 00:35
PROVIDERS: ADMIT Advanced Practice Midwife; ATTEND Specialist
PROC: 10E0XZZ Delivery of Products of Conception, External Approach (ICD-10-PCS; principal; 2021-01-25)
PROC: 3E0P7GC Introduction of Other Therapeutic Substance into Female Reproductive, Via Natural or Artificial Opening (ICD-10-PCS; 2021-01-25)
DX: O48.0 Post-term pregnancy (principal); Z37.0 Single live birth; Z3A.40 40 weeks gestation of pregnancy; O69.81X0 Labor and delivery complicated by cord around neck, without compression, not applicable or unspecified

== ENCOUNTER → 2021-06-08 | Outpatient (CLI) | payer OTHER ==
[2021-06-08 14:40] LABS: FREE T4 0.94 NG/DL (0.76-1.46); THYROID STIMULATING HORMONE 1.35 uIU/ML (0.358-3.740)
== END ==
LOC: M PLALAB 11:19
PROVIDERS: ATTEND Internal Medicine Endocrinology, Diabetes & Metabolism
DX: R94.6 Abnormal results of thyroid function studies (principal)

== ENCOUNTER 2021-11-28 09:04 | Emergency (ER) | payer OTHER ==
[~2021-11-28] VITALS: Ht 167.6 cm; Wt 107.4 kg
[2021-11-28 09:04] VITALS: BP 144/87
== END 2021-11-28 10:19 | disposition left against medical advice (07) ==
LOC: M ED 09:04
DX: Z53.21 Procedure and treatment not carried out due to patient leaving prior to being seen by health care provider (principal)